=== PATIENT | male | born 1990 | race Caucasian/White ===

== ENCOUNTER 2021-07-04 11:08 | Emergency (ER) | payer OTHER ==
[2021-07-04] MEDS ORDERED: Cyclobenzaprine 10 MG TAB ONE (11:48)
[2021-07-04] MEDS ORDERED: Ketorolac Tromethamine 60 MG/2 ML VIAL ONE (11:48)
== END 2021-07-04 12:30 | disposition home or self-care (01) ==
LOC: NAV ERS 11:08
DX: M25.511 Pain in right shoulder (principal); M54.6 Pain in thoracic spine
CPT/HCPCS: 71046; 93005; 96372; J1885